=== PATIENT | male | born 1925 | race Native Hawaiian/Other Pacific Islander ===

== ENCOUNTER 2016-10-17 10:25 | Inpatient (IN) | payer OTHER ==
[~2016-10-17 10:25] MED LIST: CALCIUM + D600 MG PO; CARDIZEM60 MG PO; CLON0.1T16 PO; CLON0.5T36 PO; COLCRYS 0.6MG0.6 MG PO; DEXTLIQ63 PO; FURO20TA67 PO; GABA300C2 PO; IMDUR30 MG PO; K-TAB10 MEQ PO; LANOXIN 0.120.125 M1 PO; LEVO0.1224 PO; LISI20TA11 PO; LOMOTIL2.5 MG PO; MELATONIN3 M1 PO; TOBRAMYCIN0.3 % OP; TYLENOL325 MG PO; WARF5TAB6 PO
== END 2016-11-17 08:00 | disposition still patient (30) ==
LOC: PAVC 10:25
PROVIDERS: ADMIT Internal Medicine
DX: Z51.89 Encounter for other specified aftercare (principal)

== ENCOUNTER 2016-11-17 09:00 | Inpatient (IN) | payer OTHER | END 2016-12-18 12:37 | disposition still patient (30) | LOC: PAVC 09:00 | PROVIDERS: ADMIT Internal Medicine | DX: Z51.89 Encounter for other specified aftercare (principal) ==

== ENCOUNTER 2016-11-22 04:28 | Outpatient (CLI) | payer OTHER | END 2016-11-22 05:28 | disposition home or self-care (01) | LOC: LAB 04:28 | DX: Z79.01 Long term (current) use of anticoagulants (principal); Z51.81 Encounter for therapeutic drug level monitoring | CPT/HCPCS: 36415; 85610 ==

== ENCOUNTER 2016-12-18 13:03 | Inpatient (IN) | payer OTHER | END 2017-01-15 13:22 | disposition still patient (30) | LOC: PAVC 13:03 | PROVIDERS: ADMIT Internal Medicine | DX: Z51.89 Encounter for other specified aftercare (principal) ==

== ENCOUNTER 2016-12-23 04:02 | Outpatient (CLI) | payer OTHER | END 2016-12-23 20:01 | disposition home or self-care (01) | LOC: LAB 04:02 | DX: Z79.01 Long term (current) use of anticoagulants (principal); M10.9 Gout, unspecified; E11.9 Type 2 diabetes mellitus without complications | CPT/HCPCS: 36415; 83036; 84550; 85610 ==

== ENCOUNTER 2017-01-15 13:45 | Inpatient (IN) | payer OTHER | END 2017-02-15 08:15 | disposition still patient (30) | LOC: PAVC 13:45 | PROVIDERS: ADMIT Internal Medicine | DX: Z51.89 Encounter for other specified aftercare (principal) ==

== ENCOUNTER 2017-01-17 05:52 | Outpatient (CLI) | payer OTHER | END 2017-01-17 19:45 | disposition home or self-care (01) | LOC: LAB 05:52 | DX: D68.8 Other specified coagulation defects (principal) | CPT/HCPCS: 85610 ==

== ENCOUNTER 2017-02-15 08:52 | Inpatient (IN) | payer OTHER | END 2017-03-17 10:59 | disposition still patient (30) | LOC: PAVC 08:52 | PROVIDERS: ADMIT Internal Medicine | DX: Z51.89 Encounter for other specified aftercare (principal) ==

== ENCOUNTER 2017-02-27 05:05 | Outpatient (CLI) | payer OTHER | END 2017-02-27 19:44 | disposition home or self-care (01) | LOC: LAB 05:05 | DX: I48.2 Chronic atrial fibrillation (principal) | CPT/HCPCS: 85610 ==

== ENCOUNTER 2017-02-28 14:21 | Outpatient (CLI) | payer OTHER | END 2017-02-28 20:27 | disposition home or self-care (01) | LOC: LAB 14:21 | DX: M10.9 Gout, unspecified (principal) | CPT/HCPCS: 84550 ==

== ENCOUNTER 2017-03-16 09:51 | Outpatient (CLI) | payer OTHER | END 2017-03-16 19:47 | disposition home or self-care (01) | LOC: LAB 09:51 | DX: Z16.24 Resistance to multiple antibiotics (principal) | CPT/HCPCS: 87081 ==

== ENCOUNTER 2017-03-19 04:50 | Outpatient (CLI) | payer OTHER ==
[2017-03-19 05:36] LABS: PLATELET COUNT 119 K/uL (142-355)
[2017-03-19 05:37] LABS: POTASSIUM 4.4 mmol/L (3.6-5.2); SODIUM 138 mmol/L (136-145)
== END 2017-03-19 19:07 | disposition home or self-care (01) ==
LOC: LAB 04:50
PROVIDERS: Internal Medicine
DX: D64.9 Anemia, unspecified (principal); Z79.899 Other long term (current) drug therapy; Z79.01 Long term (current) use of anticoagulants; E11.9 Type 2 diabetes mellitus without complications; M06.4 Inflammatory polyarthropathy
CPT/HCPCS: 36415; 80053; 80162; 83036; 84550; 85027; 85610